=== PATIENT | female | born 1945 | race Caucasian/White ===

== ENCOUNTER 2017-03-05 00:40 | Emergency (ER) | payer OTHER ==
[2017-03-05] MEDS: REGADENOSON INJ 0.4 MG/5 ML SYR IV (00:51)
[2017-03-05] MEDS ORDERED: SODIUM CHLORIDE 0.9% FLUSH 10 ML FLUSH IV FLUSH ×2 (03:00)
[2017-03-05] MEDS ORDERED: ACETAMINOPHEN 500 MG CPLT PO (03:00)
[2017-03-05] MEDS ORDERED: ONDANSETRON HCL 4 MG/2 ML VIAL IV PUSH (03:00)
[2017-03-05 03:55] LABS: TROPONIN I LESS THAN 0.02 NG/ML (0.02-0.05)
[2017-03-05 03:59] LABS: CREATINE KINASE 31 U/L (26-192)
[2017-03-05] MEDS ORDERED: GLUCAGON 1 MG/ML VIAL OTHER (04:45)
[2017-03-05] MEDS ORDERED: DEXTROSE 50% IN WATER 50 ML VIAL(D50) IV PUSH (04:45)
[2017-03-05] MEDS: SODIUM CHLOR 0.9% 1000 ML INJ 1,000 ML IV (04:50)
[2017-03-05] MEDS: LOW DOSE INSULIN NOVOLOG SUPPLEMENTAL SCALE SQ ×3 (08:18→16:09)
[2017-03-05] MEDS: ENOXAPARIN SODIUM 40 MG/0.4 ML SYRINGE SQ (08:20)
[2017-03-05] MEDS: PANTOPRAZOLE SOD 40 MG DELAYED RELEASE TAB PO (08:22)
[2017-03-05] MEDS: VALSARTAN 80 MG TAB PO (16:06)
[2017-03-05] MEDS: amLODIPine BESYLATE 5 MG TAB PO (16:06)
[2017-03-05 17:16] LABS: CHOLESTEROL 126 MG/DL (120-200); TRIGLYCERIDES 175 MG/DL (42-150)
[2017-03-05 17:18] LABS: CHOLESTEROL/ HDL RATIO 1.83 RATIO; HDL CHOLESTEROL 68.6 MG/DL (40.0-60.0); LDL CHOLESTEROL 22 MG/DL (0-99)
[2017-03-06] MEDS ORDERED: ASPIRIN 81 MG CHEW TAB CHEW (09:00)
== END 2017-03-05 18:50 | disposition home or self-care (01) ==
LOC: PHEDDLT 00:40 → PHICU 00:50 → PHED 18:50
DX: R07.9 Chest pain, unspecified (principal); I10 Essential (primary) hypertension; E11.9 Type 2 diabetes mellitus without complications; Z79.899 Other long term (current) drug therapy
CPT/HCPCS: 71045; 78452; 80048; 80061; 82550; 83735; 84484; 85025; 85610; 85730; 93005; 93017; 99285-25